=== PATIENT | female | born 1960 | race Two or more races ===

== ENCOUNTER → 2019-06-05 | Outpatient (REF) | payer MEDICAID ==
[2019-06-05 18:11] LABS: BASO % 0.4 % (0.0-1.0); HEMATOCRIT 36.8 % (36.0-47.0); HEMOGLOBIN 11.1 g/dl (12.0-15.5); LYMPH # 2.3 10^3/uL (1.5-5.0); LYMPH % 43.3 % (24.0-44.0); MEAN CORPUSCULAR HEMOGLOBIN 21.2 pg (27.0-33.0); MEAN CORPUSCULAR HGB CONC 30.2 g/dl (32.0-36.5); MEAN CORPUSCULAR VOLUME 70.2 fl (80.0-96.0); MONO # 0.4 10^3/uL (0.0-0.8); MONO % 7.3 % (0.0-5.0); NEUTROPHILS # 2.6 10^3/uL (1.5-8.5); NEUTROPHILS % 48.8 % (36.0-66.0); PLATELET COUNT, AUTOMATED 288 10^3/uL (150-450); RED BLOOD COUNT 5.24 10^6/uL (4.00-5.40); WHITE BLOOD COUNT 5.2 10^3/uL (4.0-10.0)
[2019-06-05 18:21] LABS: ALT/SGPT 17 U/L (12-78); BILIRUBIN,TOTAL 0.3 MG/DL (0.2-1.0); BLOOD UREA NITROGEN 10 MG/DL (7-18); CALCIUM LEVEL 9.5 MG/DL (8.5-10.1); CARBON DIOXIDE LEVEL 28 MEQ/L (21-32); CHLORIDE LEVEL 108 MEQ/L (98-107); CHOLESTEROL LEVEL 227 MG/DL (<200); CHOLESTEROL RISK RATIO 4.053 (<5); CREATININE FOR GFR 0.88 MG/DL (0.55-1.30); GLOMERULAR FILTRATION RATE > 60.0 (>51); GLUCOSE, FASTING 106 MG/DL (70-100); HDL CHOLESTEROL 56 MG/DL (>40); LDL CHOLESTEROL 144 MG/DL (<100); NON-HDL-C 171 MG/DL; POTASSIUM SERUM 4.2 MEQ/L (3.5-5.1); SODIUM LEVEL 140 MEQ/L (136-145); TOTAL PROTEIN 8.7 GM/DL (6.4-8.2); TRIGLYCERIDES LEVEL 134 MG/DL (<150)
[2019-06-05 18:23] LABS: TOTAL 25(OH) VITAMIN D 13.9 NG/ML (30.0-100.0)
[2019-06-05 18:59] LABS: MALB URINE SIEMENS 49.8 MG/L; MAU/CREAT RATIO 27.9 MCG/MG (0.0-30.0)
[2019-06-05 20:24] LABS: HEMOGLOBIN A1c 6.9 %
== END ==
LOC: M LAB REF 16:35
PROVIDERS: ATTEND Family Medicine
DX: E11.9 Type 2 diabetes mellitus without complications (principal); Z13.228 Encounter for screening for other metabolic disorders

== ENCOUNTER → 2019-10-24 | Outpatient (REF) | payer OTHER, MEDICAID ==
[2019-10-24 14:27] LABS: BASO % 0.4 % (0.0-1.0); HEMATOCRIT 34.9 % (36.0-47.0); HEMOGLOBIN 10.6 g/dl (12.0-15.5); LYMPH # 2.3 10^3/uL (1.5-5.0); LYMPH % 42.6 % (24.0-44.0); MEAN CORPUSCULAR HEMOGLOBIN 21.2 pg (27.0-33.0); MEAN CORPUSCULAR HGB CONC 30.4 g/dl (32.0-36.5); MEAN CORPUSCULAR VOLUME 69.7 fl (80.0-96.0); MONO # 0.5 10^3/uL (0.0-0.8); MONO % 8.4 % (0.0-5.0); NEUTROPHILS # 2.6 10^3/uL (1.5-8.5); NEUTROPHILS % 48.2 % (36.0-66.0); PLATELET COUNT, AUTOMATED 308 10^3/uL (150-450); RED BLOOD COUNT 5.01 10^6/uL (4.00-5.40); WHITE BLOOD COUNT 5.4 10^3/uL (4.0-10.0)
[2019-10-24 15:02] LABS: ALBUMIN 3.6 GM/DL (3.2-5.2); ALT/SGPT 17 U/L (12-78); BILIRUBIN,TOTAL 0.3 MG/DL (0.2-1.0); BLOOD UREA NITROGEN 14 MG/DL (7-18); CALCIUM LEVEL 9.3 MG/DL (8.5-10.1); CARBON DIOXIDE LEVEL 27 MEQ/L (21-32); CHLORIDE LEVEL 107 MEQ/L (98-107); CHOLESTEROL LEVEL 177 MG/DL (<200); CHOLESTEROL RISK RATIO 3.765 (<5); CREATININE FOR GFR 0.73 MG/DL (0.55-1.30); GLOMERULAR FILTRATION RATE > 60.0 (>51); GLUCOSE, FASTING 85 MG/DL (70-100); HDL CHOLESTEROL 47 MG/DL (>40); LDL CHOLESTEROL 101 MG/DL (<100); NON-HDL-C 130 MG/DL; POTASSIUM SERUM 4.5 MEQ/L (3.5-5.1); SODIUM LEVEL 140 MEQ/L (136-145); TOTAL PROTEIN 7.8 GM/DL (6.4-8.2); TRIGLYCERIDES LEVEL 146 MG/DL (<150)
[2019-10-24 15:42] LABS: HEMOGLOBIN A1c 6.3 %
== END ==
LOC: M LAB REF 13:31
PROVIDERS: ATTEND Family Medicine
DX: E11.9 Type 2 diabetes mellitus without complications (principal)

== ENCOUNTER → 2020-04-29 | Outpatient (REF) | payer OTHER, MEDICAID ==
[2020-04-29 12:43] LABS: BASO % 0.3 % (0.0-1.0); HEMATOCRIT 35.9 % (36.0-47.0); HEMOGLOBIN 10.8 g/dl (12.0-15.5); LYMPH % 47.2 % (24.0-44.0); MEAN CORPUSCULAR HEMOGLOBIN 21.2 pg (27.0-33.0); MEAN CORPUSCULAR HGB CONC 30.1 g/dl (32.0-36.5); MEAN CORPUSCULAR VOLUME 70.5 fl (80.0-96.0); MONO # 0.6 10^3/uL (0.0-0.8); MONO % 9.8 % (0.0-5.0); NEUTROPHILS # 2.7 10^3/uL (1.5-8.5); NEUTROPHILS % 42.5 % (36.0-66.0); PLATELET COUNT, AUTOMATED 303 10^3/uL (150-450); RED BLOOD COUNT 5.09 10^6/uL (4.00-5.40); WHITE BLOOD COUNT 6.3 10^3/uL (4.0-10.0)
[2020-04-29 12:52] LABS: APPEARANCE, URINE CLEAR (CLEAR); BACTERIA, URINE AUTO 1+ (NEGATIVE); BILIRUBIN, URINE AUTO NEGATIVE (NEGATIVE); BLOOD, URINE BLOOD NEGATIVE (NEGATIVE); COLOR, URINE YELLOW (YELLOW); GLUCOSE, URINE (UA) AUTO NEGATIVE (NEGATIVE); KETONE, URINE AUTO NEGATIVE (NEGATIVE); LEUKOCYTE ESTERASE, URINE AUTO NEGATIVE (NEGATIVE); NITRITE, URINE AUTO POSITIVE (NEGATIVE); PROTEIN, URINE AUTO NEGATIVE (NEGATIVE); RBC, URINE AUTO 1 /HPF (0-3); SPECIFIC GRAVITY URINE AUTO 1.014 (1.002-1.035); SQUAMOUS EPITHELIAL CELL UR AU 1 /HPF (0-6); UROBILINOGEN, URINE AUTO 0.2 mg/dL (0.0-2.0); WBC, URINE AUTO 6 /HPF (0-3)
[2020-04-29 12:55] LABS: ALBUMIN 3.4 GM/DL (3.2-5.2); ALT/SGPT 17 U/L (12-78); BILIRUBIN,TOTAL 0.2 MG/DL (0.2-1.0); BLOOD UREA NITROGEN 9 MG/DL (7-18); CALCIUM LEVEL 8.7 MG/DL (8.5-10.1); CARBON DIOXIDE LEVEL 27 MEQ/L (21-32); CHLORIDE LEVEL 110 MEQ/L (98-107); CHOLESTEROL LEVEL 155 MG/DL (<200); CHOLESTEROL RISK RATIO 3.163 (<5); CREATININE FOR GFR 0.84 MG/DL (0.55-1.30); FREE T4 1.04 NG/DL (0.76-1.46); GLOMERULAR FILTRATION RATE > 60.0 (>51); GLUCOSE, FASTING 109 MG/DL (70-100); HDL CHOLESTEROL 49 MG/DL (>40); LDL CHOLESTEROL 80 MG/DL (<100); NON-HDL-C 106 MG/DL; SODIUM LEVEL 141 MEQ/L (136-145); TOTAL PROTEIN 7.8 GM/DL (6.4-8.2); TRIGLYCERIDES LEVEL 132 MG/DL (<150)
[2020-04-29 13:01] LABS: HEMOGLOBIN A1c 6.7 %
[2020-04-29 13:24] LABS: TOTAL 25(OH) VITAMIN D 9.7 NG/ML (30.0-100.0)
== END ==
LOC: M LAB REF 11:10
PROVIDERS: ATTEND Nurse Practitioner Family
DX: E78.01 Familial hypercholesterolemia (principal); I10 Essential (primary) hypertension; E11.9 Type 2 diabetes mellitus without complications

== ENCOUNTER → 2020-05-27 | Outpatient (REF) | payer OTHER, MEDICAID ==
[2020-05-27 16:55] LABS: BASO % 0.3 % (0.0-1.0); HEMOGLOBIN 10.5 g/dl (12.0-15.5); LYMPH # 2.4 10^3/uL (1.5-5.0); LYMPH % 40.5 % (24.0-44.0); MEAN CORPUSCULAR HEMOGLOBIN 20.9 pg (27.0-33.0); MEAN CORPUSCULAR VOLUME 69.7 fl (80.0-96.0); MONO # 0.5 10^3/uL (0.0-0.8); MONO % 8.4 % (0.0-5.0); NEUTROPHILS % 50.5 % (36.0-66.0); PLATELET COUNT, AUTOMATED 313 10^3/uL (150-450); RED BLOOD COUNT 5.02 10^6/uL (4.00-5.40)
[2020-05-27 17:15] LABS: FERRITIN 94 NG/ML (8-252); IRON (FE) 68 UG/DL (50-170); RHEUMATOID FACTOR QUANT < 10.0 IU/ML (<15.0); URIC ACID 6.7 MG/DL (2.6-6.0)
[2020-05-27 17:22] LABS: FOLATE 9.7 NG/ML (>5.4); VITAMIN B12 LEVEL 345 PG/ML (247-911)
[2020-05-27 17:45] LABS: ERYTHROCYTE SEDIMENTATION RATE 46 mm/hr (0-30)
[2020-05-29 17:09] LABS: ANTI DOUBLE STRAND-DNA AB 15 IU/mL (0-9); ANTINUCLEAR ANTIBODIES DIRECT Positive (Negative); RNP ANTIBODIES 0.4 AI (0.0-0.9); SJOGREN'S ANTI SS-A <0.2 AI (0.0-0.9); SJOGREN'S ANTI SS-B <0.2 AI (0.0-0.9); SMITH ANTIBODIES <0.2 AI (0.0-0.9)
== END ==
LOC: M LAB REF 16:14
PROVIDERS: ATTEND Nurse Practitioner Family
DX: G89.4 Chronic pain syndrome (principal); M25.50 Pain in unspecified joint; Z13.9 Encounter for screening, unspecified; E78.01 Familial hypercholesterolemia; E11.9 Type 2 diabetes mellitus without complications

== ENCOUNTER → 2020-06-26 | Outpatient (CLI) | payer OTHER, MEDICAID ==
--- NOTE | 2020-06-26 14:20 | REPPI ---
INDICATION: M25.50 POLYARTHRALGIA. COMPARISON: No comparison study. TECHNIQUE: Two views.. FINDINGS: The lungs are well inflated and free of infiltrate. The pleural angles are sharp. The heart size is normal. Pulmonary vasculature is not increased. No significant bony abnormality is seen. The aorta is slightly tortuous. IMPRESSION: No active disease.. <Electronically signed by Christopher Gonzalez > 06/26/20 0426
== END ==
LOC: M PLAIMG 10:18
PROVIDERS: ATTEND Internal Medicine
DX: M25.50 Pain in unspecified joint (principal)

== ENCOUNTER → 2020-06-26 | Outpatient (REF) | payer OTHER, MEDICAID ==
[2020-06-26 13:45] LABS: COMPLEMENT C3 172 MG/DL (90-180); COMPLEMENT C4 51 MG/DL (10-40); CPK CREATINE PHOSPHOKINASE 97 U/L (26-192); THYROID PEROXIDASE ANTIBODY > 1300.0 U/ML (<60.0); URIC ACID 6.8 MG/DL (2.6-6.0)
[2020-06-26 13:50] LABS: HEPATITIS B SURFACE ANTIGEN NEGATIVE (NEGATIVE)
[2020-06-26 14:17] LABS: HEPATITIS C VIRUS ABY INDEX 0.1 INDEX (<0.8)
[2020-06-30 14:07] LABS: ALDOLASE 4.8 U/L (3.3-10.3); ANA (HEP2) Positive (.); ANGIOTENSIN 1 CONVERTING ENZYM 22 U/L (14-82); ANTI DS-DNA AB Negative (Negative); CYCLIC CITRULLINATED PEPTIDE 8 units (0-19); HEPATITIS B CORE ANTIBODY IGG Negative (Negative)
== END ==
LOC: M SFHCRHEU 09:52
PROVIDERS: ATTEND Internal Medicine
DX: R76.8 Other specified abnormal immunological findings in serum (principal); M25.50 Pain in unspecified joint; M79.10 Myalgia, unspecified site

== ENCOUNTER → 2020-07-22 | Outpatient (CLI) | payer OTHER ==
--- NOTE | 2020-07-31 11:59 | REP ---
INDICATION: ADDL VIEWS/AMIE DIAG MAMMO; AMIE BREAST DENSITIES/ADDL VIEWS. Bilateral diagnostic mammography and targeted ultrasound recommended after screening exam performed on the local mobile van dated April 24, 2020. COMPARISON: Comparison is made with recent mammography from April 24, 2020 as well as ultimately retrieved outside mammography dated February 06, 2018. Comparison sonography April 19, 2018.. TECHNIQUE: Bilateral magnified focal spot-compression CC, true mL, and MLO views are obtained. Mediolateral 3D tomography is carried out bilaterally. Targeted bilateral breast ultrasound is performed. FINDINGS: Scattered fibroglandular elements are again seen. No nodular density is confirmed in the right breast. No mammographic abnormality noted on the right. There is a asymmetric nodular density in the left breast superiorly at approximately 12 o'clock position as seen on screening mammography April 24, 2020. There is a needle biopsy marker clip in the left breast however this projects in the upper outer quadrant away from this nodule. Review of the 2018 prior mammography shows a nodular opacity in this region which is similar to the current findings. It is less conspicuous on the prior study because there has been some involutional change in the interval since the 2018 study. Bilateral targeted sonography: Scanning in the right breast at approximately the 12 o'clock position 3 cm from the nipple shows a 6 x 5 x 2 mm cyst with benign features. Background echotexture is somewhat heterogeneous on the right. Targeted sonography in the left breast in the 12 o'clock position 2 cm from nipple identifies a hypoechoic structure 8 x 9 x 7 mm in diameter. There are internal echoes. There is enhanced through transmission but the lesion does not appear to meet criteria of a simple cyst. IMPRESSION: BIRADS/ACR category 4 suspicious left breast mammographic and sonographic findings. Hypoechoic lesion corresponding to a nodular density in the left breast at 12 o'clock. This does not meet criteria of simple cyst and histologic sampling is recommended.. This patient's Tyrer-Cuzick lifetime breast cancer risk assessment score is 8.0%. This mammogram was interpreted with the aid of an FDA-approved computer-aided detection system. The patient states she had a clinical breast exam in over a year ago. The patient letter being requested is M4. RECOMMENDATION: Ultrasound-guided needle aspiration and/or biopsy of the hypoechoic lesion in the left breast with marker clip placement and post clip placement mammography.. <Electronically signed by Christopher Gonzalez > 07/31/20 1152
== END ==
LOC: M WHC 14:01
PROVIDERS: ATTEND Nurse Practitioner Family
DX: R92.8 Other abnormal and inconclusive findings on diagnostic imaging of breast (principal); N63.21 Unspecified lump in the left breast, upper outer quadrant
CPT/HCPCS: 76642; 77066; G0279

== ENCOUNTER → 2020-08-20 | Outpatient (CLI) | payer OTHER ==
--- NOTE | 2020-08-20 15:51 | REP ---
INDICATION: R92.8 ABN MAMMO LT BREAST,US GUIDED BIOPSY. COMPARISON: Ultrasound 07/22/2020. TECHNIQUE: Real-time sonographic evaluation of left breast performed. FINDINGS: Ultrasound guidance was provided for Dr. Flood performed ultrasound-guided sampling of the nodule identified at 12 o'clock left breast. IMPRESSION: Ultrasound guidance was provided for Dr. Flood performed ultrasound-guided sampling of the nodule identified at 12 o'clock left breast. RECOMMENDATION: Clinical follow-up. <Electronically signed by Myles Marinelli > 08/20/20 1549
--- NOTE | 2020-08-20 15:55 | REP ---
INDICATION: R92.8 ABN MAMMO LT BREAST,US GUIDED BIOPSY,POST BIOPSY. COMPARISON: 07/22/2020. TECHNIQUE: ML and CC views left breast performed with tomosynthesis following ultrasound-guided biopsy of a nodule at 12 o'clock left breast. FINDINGS: A biopsy clip is now visualized at the site of the nodule on the mammogram, 12 o'clock position. IMPRESSION: Appropriate placement of biopsy clip at the site of the nodule at 12 o'clock left breast which was biopsied with ultrasound guidance today. RECOMMENDATION: Clinical follow-up. <Electronically signed by Myles Marinelli > 08/20/20 [id number]
[2020-08-20 17:50] VITALS: BP 136/80
--- NOTE | 2020-08-21 22:17 | ROOPDOC ---
[facility] Report Of Operation Report of Operation DATE OF PROCEDURE: 08/20/20 DIAGNOSIS: left breast suspicious lesion PROCEDURE: Ultrasound guided attempted aspiration of left breast lesion followed by US guided biopsy of left breast suspicious lesion with clip placement SURGEON: Palomo Alvarado BLOOD LOSS: minimal COMPLICATIONS: none Lidocaine 1% LOT [id number] Expiration 11/2023 Sodium Bicarbonate 8.4% LOT [id number] Expiration 05/2021 Hydromark clip LOT [id number] Expiration 03/2023 SHAPE 4 Bx device: BARD [id number] x10 cm LOT [id number] Expiration 03/2023 Informed consent was obtained. The most common risk and possible complications including bleeding, hematoma, bruising, infection, injury to surrounding structures were explained to the patient and the patient expressed understanding. Patient was placed on the bed in the supine position. Appropriate time out was done stating patients name, date of , and the procedure to be performed. The left breast was prepped and draped in the usual fashion. The ultrasound was used to confirm the location of the lesion in the left breast at 12:00 2 centimeters from the nipple. Plain Lidocaine 1% and 8.4% sodium bicarbonate 10:1 mix was used to anesthetize the skin, the tissues surrounding the lesion and tissues along the anticipated aspiration/biopsy tract. An attempted aspiration of the lesion with 18 G needle with ultrasound guidance, was done and failed to return any fluid confirming that the lesion is solid in nature. Next, a small skin incision was made with blade number 11. BARD Marquee 14G cannula with introducer ([id number]) was inserted through the incision and advanced under the ultrasound guidance to position immediately adjacent to the lesion. Next, the introducer was removed and BARD Marquee 14G biopsy device was places in the cannula. Pre-biopsy imaging, and post-biopsy imaging were captured. Five good core biopsies were taken at various levels of the lesion. Specimen was placed in formaldehyde, labeled with appropriate biopsy site and patients name, and sent to pathology for evaluation. Next, the biopsy device was withdrawn and a clip introducer was inserted into the biopsy site via the cannula. The SHAPE 4 Hydromark clip was deployed under sonographic guidance. Post-clip placement image was captured. Manual pressure over the biopsy cavity and tract was held after the clip introducer was withdrawn. No bleeding was noted upon removal of the pressure. Post-biopsy mammogram of the left breast was obtained and showed clip in expected position. Postprocedural dressing was placed. Patient tolerated procedure well. Discharge instructions were discussed with the patient and the patient expressed understanding. PALOMO ALVARADO DO Aug 21, 2020 22:17
== END ==
LOC: M WHCPRO 13:38
PROVIDERS: ATTEND Surgery
DX: N61.0 Mastitis without abscess (principal); R92.8 Other abnormal and inconclusive findings on diagnostic imaging of breast
CPT/HCPCS: 10005; 19083; 77065; 88305; G0279

== ENCOUNTER → 2020-08-28 | Outpatient (REF) | payer OTHER, MEDICAID ==
[2020-08-28 13:17] LABS: BASO % 0.4 % (0.0-1.0); HEMATOCRIT 35.1 % (36.0-47.0); HEMOGLOBIN 10.8 g/dl (12.0-15.5); LYMPH # 2.1 10^3/uL (1.5-5.0); LYMPH % 39.7 % (24.0-44.0); MEAN CORPUSCULAR HEMOGLOBIN 21.5 pg (27.0-33.0); MEAN CORPUSCULAR HGB CONC 30.8 g/dl (32.0-36.5); MEAN CORPUSCULAR VOLUME 69.9 fl (80.0-96.0); MONO # 0.5 10^3/uL (0.0-0.8); MONO % 8.6 % (0.0-5.0); NEUTROPHILS # 2.7 10^3/uL (1.5-8.5); NEUTROPHILS % 51.1 % (36.0-66.0); PLATELET COUNT, AUTOMATED 292 10^3/uL (150-450); RED BLOOD COUNT 5.02 10^6/uL (4.00-5.40); WHITE BLOOD COUNT 5.3 10^3/uL (4.0-10.0)
[2020-08-28 13:28] LABS: HEMOGLOBIN A1c 5.9 %
[2020-08-28 13:36] LABS: ALBUMIN 3.7 GM/DL (3.2-5.2); ALT/SGPT 18 U/L (12-78); BILIRUBIN,TOTAL 0.3 MG/DL (0.2-1.0); BLOOD UREA NITROGEN 13 MG/DL (7-18); CARBON DIOXIDE LEVEL 28 MEQ/L (21-32); CHLORIDE LEVEL 105 MEQ/L (98-107); CHOLESTEROL LEVEL 236 MG/DL (<200); CHOLESTEROL RISK RATIO 5.021 (<5); CREATININE FOR GFR 0.88 MG/DL (0.55-1.30); FREE T4 1.17 NG/DL (0.76-1.46); GLOMERULAR FILTRATION RATE > 60.0 (>51); GLUCOSE, FASTING 96 MG/DL (70-100); HDL CHOLESTEROL 47 MG/DL (>40); LDL CHOLESTEROL 164 MG/DL (<100); NON-HDL-C 189 MG/DL; POTASSIUM SERUM 4.6 MEQ/L (3.5-5.1); SODIUM LEVEL 138 MEQ/L (136-145); THYROID STIMULATING HORMONE 0.608 uIU/ML (0.358-3.740); TOTAL PROTEIN 7.5 GM/DL (6.4-8.2); TRIGLYCERIDES LEVEL 125 MG/DL (<150)
[2020-08-28 13:39] LABS: TOTAL 25(OH) VITAMIN D 63.4 NG/ML (30.0-100.0)
== END ==
LOC: M LAB REF 12:19
PROVIDERS: ATTEND Nurse Practitioner Family
DX: E11.65 Type 2 diabetes mellitus with hyperglycemia (principal); E66.9 Obesity, unspecified; J45.909 Unspecified asthma, uncomplicated; E78.5 Hyperlipidemia, unspecified

== ENCOUNTER → 2021-01-27 | Outpatient (REF) | payer OTHER, MEDICAID ==
[2021-01-27 17:24] LABS: C REACTIVE PROTEIN QUANTITATIV 0.92 MG/DL (0.00-0.30); MAGNESIUM LEVEL 2.1 MG/DL (1.8-2.4); PHOSPHORUS LEVEL 3.5 MG/DL (2.5-4.9); TOTAL 25(OH) VITAMIN D 19.8 NG/ML (30.0-100.0)
== END ==
LOC: M SFHCRHEU 11:10
PROVIDERS: ATTEND Internal Medicine
DX: E55.9 Vitamin D deficiency, unspecified (principal); M79.7 Fibromyalgia; M25.40 Effusion, unspecified joint